=== PATIENT | male | born 1940 | race Caucasian/White ===

== ENCOUNTER 2019-06-30 01:33 | Outpatient (CLI) | payer OTHER, SELFPAY ==
--- NOTE | 2019-06-30 | DI.MRI_ITS ---
EXAM: MR PELVIS WO CLINICAL HISTORY: PROSTATE CA S/P FIDUCIAL MARKER PLACEMENT, RADIATION PLANNING TECHNIQUE: Multiplanar multisequence MRI of Pelvis was performed. CONTRAST MATERIAL: None COMPARISON: No exams were available for comparison FINDINGS: The prostate is enlarged and has a nodular appearance. The prostate measures 4.9 cm transverse by 4. 6 cm AP by 5.1 cm cephalo caudad. A superior nodule is seen measuring 2.5 by 1.7 cm. This impresses into the base of the bladder. The bladder wall appears mildly thickened and trabeculated. No adeno kev is seen. There is a small fatty containing left inguinal hernia. IMPRESSION: Enlarged nodular prostate. Bladder wall thickening and trabeculation. DATA REPOSITORY:
== END 2019-06-30 01:53 ==
PROVIDERS: PCP Family Medicine; Visit Provider Radiology Radiation Oncology
DX: C61 Malignant neoplasm of prostate (principal); N40.0 Benign prostatic hyperplasia without lower urinary tract symptoms; N32.9 Bladder disorder, unspecified
CPT/HCPCS: 72195

== ENCOUNTER 2019-09-21 12:17 | Outpatient (CLI) | payer OTHER, SELFPAY ==
[2019-09-21 15:20] LABS: ALT 91 U/L (16-63); AST 39 U/L (15-37); Albumin 3.9 g/dL (3.4-5.0); Alkaline Phosphatase 61 U/L (46-116); Bilirubin, Total 0.4 mg/dL (0.2-1.0); Total Protein 7.5 g/dL (6.4-8.2)
== END 2019-09-21 12:37 ==
PROVIDERS: Radiology Radiation Oncology; PCP Family Medicine
DX: C61 Malignant neoplasm of prostate (principal)
CPT/HCPCS: 36415; 80076